=== PATIENT | male | born 1980 | race American Indian/Alaskan Native ===

== ENCOUNTER 2019-07-30 18:53 | Emergency (ER) | payer SELFPAY ==
[2019-07-30 20:53] VITALS: BP 151/95
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
--- NOTE | 2019-07-30 23:02 | XRay Report ---
LEFT ELBOW, 3 VIEWS INDICATION / CLINICAL INFORMATION: elbow pain. COMPARISON: None available. FINDINGS: Minimal degenerative changes are present. There is no visible fracture or dislocation. There is sligh t fullness in the region of the olecranon bursa. This could represent olecranon bursitis.. IMPRESSION: Mild degenerative change with findings that could represent olecranon bursitis. Please co rrelate clinically.. Signer Name: Jessica Tomas MD Signed: 07/30/2019 10:58 PM Workstation Name: [id number]
[2019-07-30] MEDS ORDERED: IBUPROFEN 600 MG TAB PO ONE (23:28)
[2019-07-30] MEDS ORDERED: ACETAMINOPHEN 500 MG TAB PO ONE (23:28)
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
== END 2019-07-31 00:45 | disposition home or self-care (01) ==
LOC: ED 18:53
DX: S53.402A Unspecified sprain of left elbow, initial encounter (principal); S50.12XA Contusion of left forearm, initial encounter; Z79.899 Other long term (current) drug therapy; V49.49XA Driver injured in collision with other motor vehicles in traffic accident, initial encounter; Y93.89 Activity, other specified; Y99.8 Other external cause status; Y92.410 Unspecified street and highway as the place of occurrence of the external cause
CPT/HCPCS: 99284

== ENCOUNTER 2020-01-03 10:47 | Emergency (ER) | payer BC ==
[2020-01-03 10:55] VITALS: BP 140/94
--- NOTE | 2020-01-03 11:12 | Emergency Department Report ---
Suture/Staple Removal - [facility] Chief Complaint: Laceration/Recheck/Suture Stated Complaint: REMOVE AMARA IN HEAD Time Seen by Provider: 01/03/20 11:11 When Sutures or [place] Placed: 12/15/2019 Wound Location: parietal scalp ED Review of Systems ROS: Stated complaint: REMOVE AMARA IN HEAD Other details as noted in HPI Comment: All other systems reviewed and negative ED Past Medical Hx - Past Medical History Previous Medical History?: No - Surgical History Past Surgical History?: No - Social History Smoking Status: Never Smoker Substance Use Type: None - Medications Home Medications: Home Medications Medication Instructions Recorded Confirmed Last Taken Type cephALEXin [Keflex] 500 mg PO Q8H #12 capsule 06/19/13 Unknown Rx Sulfamethoxazole/Trimethoprim 1 each PO BID #14 tablet 07/09/13 Unknown Rx [Bactrim Ds] Cyclobenzaprine [Flexeril] 10 mg PO Q8H PRN #21 tablet 07/31/19 Unknown Rx Ibuprofen [Motrin] 800 mg PO Q8HR PRN #24 tablet 07/31/19 Unknown Rx Acetaminophen/Codeine [Tylenol 1 tab PO Q6H PRN #10 tab 12/15/19 Unknown Rx /Codeine # 3 tab] Ibuprofen [Motrin 800 MG tab] 800 mg PO Q8HR PRN #21 tablet 12/15/19 Unknown Rx Mupirocin [Bactroban 2% OINT] 1 applic TP TID 7 Days #1 tube 12/15/19 Unknown Rx cephALEXin [Keflex] 500 mg PO Q12HR 7 Days #14 cap 12/15/19 Unknown Rx Suture Removal Exam - Exam General: Vital signs noted. No distress. Alert and acting appropriately. Wound: No Pathologic Erythema, No Tenderness, No Drainage, No Pus, No Wound Dehiscence Other Systems: All other systems reviewed and are unremarkable. ED Course Vital Signs 01/03/20 10:52 Temperature 97.6 F Pulse Rate 66 Respiratory 16 Rate Blood Pressure 140/94 O2 Sat by Pulse 99 Oximetry ED Recheck MDM - Medical Decision Making Patient is a 39-year-old male presents emergency room with complaints of a staple removal from the parietal scalp region. He was seen in the emergency department on 12/15/2019 and had amara placed at that time. I asked patient why he left the amara in so long and he states that he could not get a day off work and that is why he presented today. He denies any fever, drainage, increased pain, swelling, headache, vision changes, numbness, weakness, any symptoms at all. He states that he did complete his medications that he was prescribed during his emergency room visit. Wound appears healed, clean, dry, intact, no signs of infection. All amara removed without difficulty, no signs of wound dehiscence, no complications, no bleeding, patient tolerated well. Critical care attestation.: If time is entered above; I have spent that time in minutes in the direct care of this critically ill patient, excluding procedure time. ED Disposition Clinical Impression: Encounter for staple removal Disposition: DC- TO HOME OR SELFCARE Is pt being admited?: No Does the pt Need Aspirin: No Condition: Stable Additional Instructions: Follow-up with a primary care doctor. Return to emergency room for new or worsening symptoms. Referrals: SHARMILA PRESCOTT MD [Staff Physician] - 3-5 Days [facility] [Provider Group] - 3-5 Days [facility] [Outside] - 3-5 Days Time of Disposition: 11:12 Print Language: SAMOAN
== END 2020-01-03 11:25 | disposition home or self-care (01) ==
LOC: ED 10:47
DX: T14.8XXD Other injury of unspecified body region, subsequent encounter (principal); Z48.02 Encounter for removal of sutures; Z53.21 Procedure and treatment not carried out due to patient leaving prior to being seen by health care provider

== ENCOUNTER 2020-03-25 21:39 | Emergency (ER) | payer SELFPAY ==
[2020-03-25 22:43] VITALS: BP 135/88
[2020-03-25] MEDS ORDERED: HYDROcodone/ACETAMINOPHEN 5-325 MG TAB PO ONE (23:15)
--- NOTE | 2020-03-25 23:46 | Emergency Department Report ---
ED ENT HPI - General Chief complaint: Dental/Oral Stated complaint: TOOTHACHE Time Seen by Provider: 03/25/20 23:16 Source: patient Mode of arrival: Ambulatory Limitations: No Limitations - History of Present Illness Initial comments: Patient is a 39-year-old male who presents with dental pain with facial swelling x2 days. Patient denies ear or throat pain there is no stridor no wheezing. Patient does endorse history of chronic dental caries. Pain today is described as 6/10 aching pain is relieved by nothing, pain is exacerbated by hot cold stimuli and palpation. There are no fevers, or chills. Patient is tolerating p.o. on the opposite side. MD complaint: tooth pain - Related Data Previous Rx's Medication Instructions Recorded Last Taken Type cephALEXin [Keflex] 500 mg PO Q8H #12 capsule 06/19/13 Unknown Rx Sulfamethoxazole/Trimethoprim 1 each PO BID #14 tablet 07/09/13 Unknown Rx [Bactrim Ds] Cyclobenzaprine [Flexeril] 10 mg PO Q8H PRN #21 tablet 07/31/19 Unknown Rx Ibuprofen [Motrin] 800 mg PO Q8HR PRN #24 tablet 07/31/19 Unknown Rx Acetaminophen/Codeine [Tylenol 1 tab PO Q6H PRN #10 tab 12/15/19 Unknown Rx /Codeine # 3 tab] Ibuprofen [Motrin 800 MG tab] 800 mg PO Q8HR PRN #21 tablet 12/15/19 Unknown Rx Mupirocin [Bactroban 2% OINT] 1 applic TP TID 7 Days #1 tube 12/15/19 Unknown Rx cephALEXin [Keflex] 500 mg PO Q12HR 7 Days #14 cap 12/15/19 Unknown Rx Amoxicillin [Trimox CAP] 500 mg PO Q8H #21 capsule 03/25/20 Unknown Rx Chlorhexidine Mouthwash [Peridex] 15 ml MM BID #1 bottle 03/25/20 Unknown Rx traMADoL [Ultram] 50 mg PO Q6HR PRN #12 tablet 03/25/20 Unknown Rx Allergies Allergy/AdvReac Type Severity Reaction Status Date / Time No Known Allergies Allergy Verified 07/09/13 10:41 ED Dental HPI - General Chief complaint: Dental/Oral Stated complaint: TOOTHACHE Time Seen by Provider: 03/25/20 23:16 Source: patient Mode of arrival: Ambulatory Limitations: No Limitations - Related Data Previous Rx's Medication Instructions Recorded Last Taken Type cephALEXin [Keflex] 500 mg PO Q8H #12 capsule 06/19/13 Unknown Rx Sulfamethoxazole/Trimethoprim 1 each PO BID #14 tablet 07/09/13 Unknown Rx [Bactrim Ds] Cyclobenzaprine [Flexeril] 10 mg PO Q8H PRN #21 tablet 07/31/19 Unknown Rx Ibuprofen [Motrin] 800 mg PO Q8HR PRN #24 tablet 07/31/19 Unknown Rx Acetaminophen/Codeine [Tylenol 1 tab PO Q6H PRN #10 tab 12/15/19 Unknown Rx /Codeine # 3 tab] Ibuprofen [Motrin 800 MG tab] 800 mg PO Q8HR PRN #21 tablet 12/15/19 Unknown Rx Mupirocin [Bactroban 2% OINT] 1 applic TP TID 7 Days #1 tube 12/15/19 Unknown Rx cephALEXin [Keflex] 500 mg PO Q12HR 7 Days #14 cap 12/15/19 Unknown Rx Amoxicillin [Trimox CAP] 500 mg PO Q8H #21 capsule 03/25/20 Unknown Rx Chlorhexidine Mouthwash [Peridex] 15 ml MM BID #1 bottle 03/25/20 Unknown Rx traMADoL [Ultram] 50 mg PO Q6HR PRN #12 tablet 03/25/20 Unknown Rx Allergies Allergy/AdvReac Type Severity Reaction Status Date / Time No Known Allergies Allergy Verified 07/09/13 10:41 ED Review of Systems ROS: Stated complaint: TOOTHACHE Other details as noted in HPI Constitutional: denies: chills, fever Eyes: denies: eye pain, eye discharge, vision change ENT: dental pain Respiratory: denies: cough, shortness of breath, wheezing Cardiovascular: denies: chest pain, palpitations Endocrine: no symptoms reported Gastrointestinal: denies: abdominal pain, nausea, diarrhea Genitourinary: denies: urgency, dysuria Musculoskeletal: denies: back pain, joint swelling, arthralgia Skin: denies: rash, lesions Neurological: denies: headache, weakness, paresthesias Psychiatric: denies: anxiety, depression Hematological/Lymphatic: denies: easy bleeding, easy bruising ED Past Medical Hx - Past Medical History Previous Medical History?: No - Surgical History Past Surgical History?: No - Social History Smoking Status: Never Smoker Substance Use Type: None - Medications Home Medications: Home Medications Medication Instructions Recorded Confirmed Last Taken Type cephALEXin [Keflex] 500 mg PO Q8H #12 capsule 06/19/13 Unknown Rx Sulfamethoxazole/Trimethoprim 1 each PO BID #14 tablet 07/09/13 Unknown Rx [Bactrim Ds] Cyclobenzaprine [Flexeril] 10 mg PO Q8H PRN #21 tablet 07/31/19 Unknown Rx Ibuprofen [Motrin] 800 mg PO Q8HR PRN #24 tablet 07/31/19 Unknown Rx Acetaminophen/Codeine [Tylenol 1 tab PO Q6H PRN #10 tab 12/15/19 Unknown Rx /Codeine # 3 tab] Ibuprofen [Motrin 800 MG tab] 800 mg PO Q8HR PRN #21 tablet 12/15/19 Unknown Rx Mupirocin [Bactroban 2% OINT] 1 applic TP TID 7 Days #1 tube 12/15/19 Unknown Rx cephALEXin [Keflex] 500 mg PO Q12HR 7 Days #14 cap 12/15/19 Unknown Rx Amoxicillin [Trimox CAP] 500 mg PO Q8H #21 capsule 03/25/20 Unknown Rx Chlorhexidine Mouthwash [Peridex] 15 ml MM BID #1 bottle 03/25/20 Unknown Rx traMADoL [Ultram] 50 mg PO Q6HR PRN #12 tablet 03/25/20 Unknown Rx ED Physical Exam - General Limitations: No Limitations General appearance: alert, in no apparent distress - Head Head exam: Present: atraumatic, normocephalic - Eye Eye exam: Present: normal appearance, EOMI Pupils: Present: normal accommodation - ENT ENT exam: Present: mucous membranes moist, TM's normal bilaterally, normal external ear exam - Expanded ENT Exam Expanded Mouth exam: Absent: trismus Teeth exam: Present: dental caries, dental tenderness # (29 mild erythem gum swelling , mild facial swelling, no trismus no fever) Throat exam: Positive: normal inspection. Negative: tonsillar erythema, tonsillomegaly, tonsillar exudate, R peritonsillar mass, L peritonsillar mass - Neck Neck exam: Present: normal inspection, full ROM, lymphadenopathy. Absent: tenderness, meningismus, thyromegaly - Respiratory Respiratory exam: Present: normal lung sounds bilaterally. Absent: respiratory distress, wheezes, stridor, chest wall tenderness - Cardiovascular Cardiovascular Exam: Present: regular rate, normal rhythm, normal heart sounds. Absent: systolic murmur, diastolic murmur, rubs, gallop - GI/Abdominal GI/Abdominal exam: Present: soft, normal bowel sounds. Absent: distended, tenderness - Rectal Rectal exam: Present: deferred - Extremities Exam Extremities exam: Present: normal inspection - Back Exam Back exam: Present: normal inspection, full ROM. Absent: tenderness - Neurological Exam Neurological exam: Present: alert, oriented X3 - Psychiatric Psychiatric exam: Present: normal affect, normal mood - Skin Skin exam: Present: warm, dry, intact, normal color. Absent: rash ED Course Vital Signs 03/25/20 22:01 Temperature 99.4 F Pulse Rate 101 H Respiratory 18 Rate Blood Pressure 135/88 O2 Sat by Pulse 97 Oximetry ED Medical Decision Making - Medical Decision Making this is infected dental carries, pt declines CT soft tissue neck, pt is tolerating po intake with out difficulty. plan: dc to home with rx , follow up with pcp in 2-3 days , pt verbalized agreement and understanding of discharge plan. Critical care attestation.: If time is entered above; I have spent that time in minutes in the direct care of this critically ill patient, excluding procedure time. ED Disposition Clinical Impression: Infected dental carries Disposition: DC-01 TO HOME OR SELFCARE Is pt being admited?: No Does the pt Need Aspirin: No Condition: Stable Instructions: Dental Caries (ED) Prescriptions: Chlorhexidine Mouthwash [Peridex] 15 ml MM BID #1 bottle Amoxicillin [Trimox CAP] 500 mg PO Q8H #21 capsule traMADoL [Ultram] 50 mg PO Q6HR PRN #12 tablet PRN Reason: Pain Referrals: [facility] [Provider Group] - 3-5 Days Forms: Work/School Release Form(ED) Time of Disposition: 23:59
== END 2020-03-26 00:19 | disposition home or self-care (01) ==
LOC: ED 21:39
DX: K02.9 Dental caries, unspecified (principal); Z79.899 Other long term (current) drug therapy
CPT/HCPCS: 99282

== ENCOUNTER 2020-04-16 18:08 | Emergency (ER) | payer SELFPAY ==
[2020-04-16 18:27] VITALS: BP 155/98
--- NOTE | 2020-04-16 18:32 | Emergency Department Report ---
ED Rash HPI - HPI Chief Complaint: Skin Rash Stated Complaint: FACE PAIN,LT FOOT PAIN Time Seen by Provider: 04/16/20 18:31 Duration: 2 Days Rash Symptoms: Yes Itching, Yes Facial Swelling, Yes Peeling, Yes Blistering, No Fever Severity: moderate Other History: The patient was evaluated in the emergency department for symptoms described in the history of present illness. He/she was evaluated in the context of the global COVID-19 pandemic, which necessitated consideration that the patient might be at risk for infection with the virus that causes COVID-19. Institutional protocols and algorithms that pertain to the evaluation of patients at risk for COVID-19 are in a state of rapid change based on information released by regulatory bodies including the CDC and federal and state organizations. These policies and algorithms were followed during the patient's care in the emergency department. Please note that these policies, procedures and recommendations changed on a rapid basis. 39-year-old - [place] male presents to the emergency room complaining of a eruptions on his face and between his toes of his left foot. Patient does admit that he keeps his feet and moist shoes. Patient complains of cracking peeling skin between his toes as well as having swelling and pus drainage from his skin on his face. Patient denies any fever chills no nausea no vomiting. ED Review of Systems ROS: Stated complaint: FACE PAIN,LT FOOT PAIN Other details as noted in HPI ED Past Medical Hx - Past Medical History Previous Medical History?: No - Surgical History Past Surgical History?: No - Social History Smoking Status: Never Smoker - Medications Home Medications: Home Medications Medication Instructions Recorded Confirmed Last Taken Type cephALEXin [Keflex] 500 mg PO Q8H #12 capsule 06/19/13 Unknown Rx Sulfamethoxazole/Trimethoprim 1 each PO BID #14 tablet 07/09/13 Unknown Rx [Bactrim Ds] Cyclobenzaprine [Flexeril] 10 mg PO Q8H PRN #21 tablet 07/31/19 Unknown Rx Ibuprofen [Motrin] 800 mg PO Q8HR PRN #24 tablet 07/31/19 Unknown Rx Acetaminophen/Codeine [Tylenol 1 tab PO Q6H PRN #10 tab 12/15/19 Unknown Rx /Codeine # 3 tab] Ibuprofen [Motrin 800 MG tab] 800 mg PO Q8HR PRN #21 tablet 12/15/19 Unknown Rx cephALEXin [Keflex] 500 mg PO Q12HR 7 Days #14 cap 12/15/19 Unknown Rx Amoxicillin [Trimox CAP] 500 mg PO Q8H #21 capsule 03/25/20 Unknown Rx Chlorhexidine Mouthwash [Peridex] 15 ml MM BID #1 bottle 03/25/20 Unknown Rx traMADoL [Ultram] 50 mg PO Q6HR PRN #12 tablet 03/25/20 Unknown Rx Clindamycin [Clindamycin CAP] 300 mg PO Q8H 10 Days #30 cap 04/16/20 Unknown Rx Clotrimazole/Betamethasone Dip 1 applicatio TP BID #45 cream..g. 04/16/20 Unknown Rx [Lotrisone Cream] Mupirocin [Bactroban 2% OINT] 1 applic TP TID 7 Days #1 tube 04/16/20 Unknown Rx Rash Exam - Exam General: Vital signs noted. No distress. Alert and acting appropriately. ED Course Vital Signs 04/16/20 18:20 Temperature 98.5 F Pulse Rate 95 H Respiratory 19 Rate Blood Pressure 155/98 O2 Sat by Pulse 95 Oximetry ED Medical Decision Making - Medical Decision Making 39-year-old -[place] male presents to the emergency room complaining of a eruptions on his face and between his toes of his left foot. Patient does admit that he keeps his feet and moist shoes. Patient complains of cracking peeling skin between his toes as well as having swelling and pus drainage from his skin on his face. Patient denies any fever chills no nausea no vomiting. Critical care attestation.: If time is entered above; I have spent that time in minutes in the direct care of this critically ill patient, excluding procedure time. ED Disposition Clinical Impression: Diffuse cellulitis of face, Tinea pedis of both feet Disposition: DC-01 TO HOME OR SELFCARE Is pt being admited?: No Does the pt Need Aspirin: No Condition: Stable Instructions: Athlete's Foot, [id number], Cellulitis, Adult, [id number] Additional Instructions: Complete antibiotics as prescribed. Use cream to your feet and face as prescribed. Follow-up with your primary care provider. Prescriptions: Mupirocin [Bactroban 2% OINT] 1 applic TP TID 7 Days #1 tube Clindamycin [Clindamycin CAP] 300 mg PO Q8H 10 Days #30 cap Clotrimazole/Betamethasone Dip [Lotrisone Cream] 1 applicatio TP BID #45 cream..g. Referrals: [facility] [Provider Group] - 3-5 Days Forms: Work/School Release Form(ED)
== END 2020-04-16 18:42 | disposition home or self-care (01) ==
LOC: ED 18:08
DX: L03.211 Cellulitis of face (principal); B35.3 Tinea pedis; Z79.899 Other long term (current) drug therapy
CPT/HCPCS: 99281

== ENCOUNTER 2020-05-27 22:01 | Emergency (ER) | payer SELFPAY ==
[2020-05-27 22:09] VITALS: BP 139/91
--- NOTE | 2020-05-27 22:11 | Emergency Department Report ---
ED ENT HPI - General Stated complaint: JAW SWOLLEN Time Seen by Provider: 05/27/20 22:06 Source: patient - History of Present Illness Initial comments: 39-year-old male presents emerged department complaining of painful swelling to the right lower jaw region for an unknown etiology which is been going on for the last couple weeks. Pain is worse with palpation, eating, chewing. Ports no fever, chills, sweats no chest pain palpitation no nausea vomiting. -: Gradual, days(s) Location: tooth # Severity: moderate Quality: dull Consistency: constant Worsens with: eating, movement Context- Dental: history of dental caries Associated Symptoms: gum swelling. denies: pain with swallowing, sore throat, discharge from ear, rhinorrhea - Related Data Previous Rx's Medication Instructions Recorded Last Taken Type cephALEXin [Keflex] 500 mg PO Q8H #12 capsule 06/19/13 Unknown Rx Sulfamethoxazole/Trimethoprim 1 each PO BID #14 tablet 07/09/13 Unknown Rx [Bactrim Ds] Cyclobenzaprine [Flexeril] 10 mg PO Q8H PRN #21 tablet 07/31/19 Unknown Rx Ibuprofen [Motrin] 800 mg PO Q8HR PRN #24 tablet 07/31/19 Unknown Rx Acetaminophen/Codeine [Tylenol 1 tab PO Q6H PRN #10 tab 12/15/19 Unknown Rx /Codeine # 3 tab] Ibuprofen [Motrin 800 MG tab] 800 mg PO Q8HR PRN #21 tablet 12/15/19 Unknown Rx cephALEXin [Keflex] 500 mg PO Q12HR 7 Days #14 cap 12/15/19 Unknown Rx Amoxicillin [Trimox CAP] 500 mg PO Q8H #21 capsule 03/25/20 Unknown Rx Chlorhexidine Mouthwash [Peridex] 15 ml MM BID #1 bottle 03/25/20 Unknown Rx traMADoL [Ultram] 50 mg PO Q6HR PRN #12 tablet 03/25/20 Unknown Rx Clindamycin [Clindamycin CAP] 300 mg PO Q8H 10 Days #30 cap 04/16/20 Unknown Rx Clotrimazole/Betamethasone Dip 1 applicatio TP BID #45 cream..g. 04/16/20 Unknown Rx [Lotrisone Cream] Mupirocin [Bactroban 2% OINT] 1 applic TP TID 7 Days #1 tube 04/16/20 Unknown Rx Amoxicillin [Amoxicillin TAB] 875 mg PO BID #20 tablet 05/27/20 Unknown Rx Chlorhexidine Mouthwash [Peridex] 15 ml MM BID #1 bottle 05/27/20 Unknown Rx Ketorolac [Toradol] 10 mg PO Q6H PRN #15 tablet 05/27/20 Unknown Rx Lidocaine Viscous 2% 5 ml MM Q3H PRN #120 udc 05/27/20 Unknown Rx Allergies Allergy/AdvReac Type Severity Reaction Status Date / Time No Known Allergies Allergy Verified 07/09/13 10:41 ED Dental HPI - General Stated complaint: JAW SWOLLEN Time Seen by Provider: 05/27/20 22:06 - Related Data Previous Rx's Medication Instructions Recorded Last Taken Type cephALEXin [Keflex] 500 mg PO Q8H #12 capsule 06/19/13 Unknown Rx Sulfamethoxazole/Trimethoprim 1 each PO BID #14 tablet 07/09/13 Unknown Rx [Bactrim Ds] Cyclobenzaprine [Flexeril] 10 mg PO Q8H PRN #21 tablet 07/31/19 Unknown Rx Ibuprofen [Motrin] 800 mg PO Q8HR PRN #24 tablet 07/31/19 Unknown Rx Acetaminophen/Codeine [Tylenol 1 tab PO Q6H PRN #10 tab 12/15/19 Unknown Rx /Codeine # 3 tab] Ibuprofen [Motrin 800 MG tab] 800 mg PO Q8HR PRN #21 tablet 12/15/19 Unknown Rx cephALEXin [Keflex] 500 mg PO Q12HR 7 Days #14 cap 12/15/19 Unknown Rx Amoxicillin [Trimox CAP] 500 mg PO Q8H #21 capsule 03/25/20 Unknown Rx Chlorhexidine Mouthwash [Peridex] 15 ml MM BID #1 bottle 03/25/20 Unknown Rx traMADoL [Ultram] 50 mg PO Q6HR PRN #12 tablet 03/25/20 Unknown Rx Clindamycin [Clindamycin CAP] 300 mg PO Q8H 10 Days #30 cap 04/16/20 Unknown Rx Clotrimazole/Betamethasone Dip 1 applicatio TP BID #45 cream..g. 04/16/20 Unknown Rx [Lotrisone Cream] Mupirocin [Bactroban 2% OINT] 1 applic TP TID 7 Days #1 tube 04/16/20 Unknown Rx Amoxicillin [Amoxicillin TAB] 875 mg PO BID #20 tablet 05/27/20 Unknown Rx Chlorhexidine Mouthwash [Peridex] 15 ml MM BID #1 bottle 05/27/20 Unknown Rx Ketorolac [Toradol] 10 mg PO Q6H PRN #15 tablet 05/27/20 Unknown Rx Lidocaine Viscous 2% 5 ml MM Q3H PRN #120 udc 05/27/20 Unknown Rx Allergies Allergy/AdvReac Type Severity Reaction Status Date / Time No Known Allergies Allergy Verified 07/09/13 10:41 ED Review of Systems ROS: Stated complaint: JAW SWOLLEN Other details as noted in HPI Comment: All other systems reviewed and negative ED Past Medical Hx - Social History Smoking Status: Never Smoker - Medications Home Medications: Home Medications Medication Instructions Recorded Confirmed Last Taken Type cephALEXin [Keflex] 500 mg PO Q8H #12 capsule 06/19/13 Unknown Rx Sulfamethoxazole/Trimethoprim 1 each PO BID #14 tablet 07/09/13 Unknown Rx [Bactrim Ds] Cyclobenzaprine [Flexeril] 10 mg PO Q8H PRN #21 tablet 07/31/19 Unknown Rx Ibuprofen [Motrin] 800 mg PO Q8HR PRN #24 tablet 07/31/19 Unknown Rx Acetaminophen/Codeine [Tylenol 1 tab PO Q6H PRN #10 tab 12/15/19 Unknown Rx /Codeine # 3 tab] Ibuprofen [Motrin 800 MG tab] 800 mg PO Q8HR PRN #21 tablet 12/15/19 Unknown Rx cephALEXin [Keflex] 500 mg PO Q12HR 7 Days #14 cap 12/15/19 Unknown Rx Amoxicillin [Trimox CAP] 500 mg PO Q8H #21 capsule 03/25/20 Unknown Rx Chlorhexidine Mouthwash [Peridex] 15 ml MM BID #1 bottle 03/25/20 Unknown Rx traMADoL [Ultram] 50 mg PO Q6HR PRN #12 tablet 03/25/20 Unknown Rx Clindamycin [Clindamycin CAP] 300 mg PO Q8H 10 Days #30 cap 04/16/20 Unknown Rx Clotrimazole/Betamethasone Dip 1 applicatio TP BID #45 cream..g. 04/16/20 Unknown Rx [Lotrisone Cream] Mupirocin [Bactroban 2% OINT] 1 applic TP TID 7 Days #1 tube 04/16/20 Unknown Rx Amoxicillin [Amoxicillin TAB] 875 mg PO BID #20 tablet 05/27/20 Unknown Rx Chlorhexidine Mouthwash [Peridex] 15 ml MM BID #1 bottle 05/27/20 Unknown Rx Ketorolac [Toradol] 10 mg PO Q6H PRN #15 tablet 05/27/20 Unknown Rx Lidocaine Viscous 2% 5 ml MM Q3H PRN #120 udc 05/27/20 Unknown Rx ED Physical Exam - General General appearance: alert, in no apparent distress - Head Head exam: Present: atraumatic, normocephalic - Eye Eye exam: Present: normal appearance, PERRL Pupils: Present: normal accommodation - ENT ENT exam: Present: normal exam, mucous membranes moist, other - Expanded ENT Exam Expanded Mouth exam: Present: other. Absent: normal external inspection, drooling, trismus, muffled voice, tongue normal, tongue elevation Teeth exam: Present: dental caries, gingival enlargement 1 - Other (Gingival swelling to this region. Abscess formation) Throat exam: Negative: tonsillar erythema, tonsillar exudate, R peritonsillar mass (Swelling adjacent to the right mandible), L peritonsillar mass - Neck Neck exam: Present: normal inspection, full ROM - Respiratory Respiratory exam: Present: normal lung sounds bilaterally. Absent: respiratory distress, rales, rhonchi, chest wall tenderness, accessory muscle use, decreased breath sounds - Cardiovascular Cardiovascular Exam: Present: regular rate, normal rhythm. Absent: systolic murmur, diastolic murmur, rubs, gallop - GI/Abdominal GI/Abdominal exam: Present: soft, normal bowel sounds - Rectal Rectal exam: Present: deferred - Extremities Exam Extremities exam: Present: normal inspection, normal capillary refill - Back Exam Back exam: Present: normal inspection. Absent: CVA tenderness (R), CVA tenderness (L) - Neurological Exam Neurological exam: Present: alert, oriented X3, CN II-XII intact - Psychiatric Psychiatric exam: Present: normal affect, normal mood - Skin Skin exam: Present: warm, dry, intact, normal color. Absent: rash Critical care attestation.: If time is entered above; I have spent that time in minutes in the direct care of this critically ill patient, excluding procedure time. ED Disposition Clinical Impression: Abscess, dental Disposition: DC-01 TO HOME OR SELFCARE Is pt being admited?: No Does the pt Need Aspirin: No Condition: Stable Instructions: Dental Abscess Referrals: [facility] [Outside] - 3-5 Days
== END 2020-05-27 22:41 | disposition home or self-care (01) ==
LOC: ED 22:01
DX: K04.7 Periapical abscess without sinus (principal); Z79.899 Other long term (current) drug therapy
CPT/HCPCS: 99282

== ENCOUNTER 2020-07-21 05:31 | Emergency (ER) | payer SELFPAY ==
--- NOTE | 2020-07-21 06:00 | Emergency Department Report ---
ED General Adult HPI - General Chief complaint: Dental/Oral Stated complaint: SWOLLEN JAW Source: patient Mode of arrival: Ambulatory Limitations: No Limitations - History of Present Illness Initial comments: Patient is a 39-year-old -[place] male with no past medical history presents to the ED with complaint of acute onset persistent severe right mandibular premolar molar toothache with swollen gums for the last 2 weeks, worse in the last 3 days. Patient states that he has not been able to eat or sleep because of worsening pain. Patient states that he has been taking [id number] medications with no relief. Patient denies dizziness, syncope, fever, chills, cough, sore throat, chest pain or shortness of breath, nausea and vomiting, headache, nasal and sinus congestion or traumatic injury. MD Complaint: Right mandibular premolar molar toothache with swollen gums -: Sudden, week(s) (2) Location: mouth Radiation: non-radiation Severity scale (0 -10): 8 Quality: aching, sharp Consistency: constant Improves with: none Worsens with: eating Associated Symptoms: denies other symptoms. denies: confusion, chest pain, cough, diaphoresis, fever/chills, headaches, loss of appetite, malaise, nausea/vomiting, rash, seizure, shortness of breath, syncope, weakness Treatments Prior to Arrival: none - Related Data Previous Rx's Medication Instructions Recorded Last Taken Type cephALEXin [Keflex] 500 mg PO Q8H #12 capsule 06/19/13 Unknown Rx Sulfamethoxazole/Trimethoprim 1 each PO BID #14 tablet 07/09/13 Unknown Rx [Bactrim Ds] Cyclobenzaprine [Flexeril] 10 mg PO Q8H PRN #21 tablet 07/31/19 Unknown Rx Ibuprofen [Motrin 800 MG tab] 800 mg PO Q8HR PRN #21 tablet 12/15/19 Unknown Rx cephALEXin [Keflex] 500 mg PO Q12HR 7 Days #14 cap 12/15/19 Unknown Rx Amoxicillin [Trimox CAP] 500 mg PO Q8H #21 capsule 03/25/20 Unknown Rx Chlorhexidine Mouthwash [Peridex] 15 ml MM BID #1 bottle 03/25/20 Unknown Rx traMADoL [Ultram] 50 mg PO Q6HR PRN #12 tablet 03/25/20 Unknown Rx Clotrimazole/Betamethasone Dip 1 applicatio TP BID #45 cream..g. 04/16/20 Unknown Rx [Lotrisone Cream] Mupirocin [Bactroban 2% OINT] 1 applic TP TID 7 Days #1 tube 04/16/20 Unknown Rx Amoxicillin [Amoxicillin TAB] 875 mg PO BID #20 tablet 05/27/20 Unknown Rx Chlorhexidine Mouthwash [Peridex] 15 ml MM BID #1 bottle 05/27/20 Unknown Rx Ketorolac [Toradol] 10 mg PO Q6H PRN #15 tablet 05/27/20 Unknown Rx Lidocaine Viscous 2% 5 ml MM Q3H PRN #120 udc 05/27/20 Unknown Rx Acetaminophen/Codeine [Tylenol 1 tab PO Q6H PRN #10 tab 07/21/20 Unknown Rx /Codeine # 3 tab] Clindamycin [Clindamycin CAP] 300 mg PO Q8H 10 Days #30 cap 07/21/20 Unknown Rx Ibuprofen [Motrin 800 MG tab] 800 mg PO Q8HR PRN #30 tablet 07/21/20 Unknown Rx Allergies Allergy/AdvReac Type Severity Reaction Status Date / Time No Known Allergies Allergy Verified 07/09/13 10:41 ED Review of Systems ROS: Stated complaint: SWOLLEN JAW Other details as noted in HPI Constitutional: denies: chills, fever Eyes: denies: eye pain, eye discharge, vision change ENT: dental pain (Swollen, painful right mandibular gingiva with premolar molar toothache). denies: ear pain, throat pain Respiratory: denies: cough, shortness of breath, wheezing Cardiovascular: denies: chest pain, palpitations Endocrine: no symptoms reported Gastrointestinal: denies: abdominal pain, nausea, diarrhea Genitourinary: denies: urgency, dysuria Musculoskeletal: denies: back pain, joint swelling, arthralgia Skin: denies: rash, lesions Neurological: denies: headache, weakness, paresthesias Psychiatric: denies: anxiety, depression Hematological/Lymphatic: denies: easy bleeding, easy bruising ED Past Medical Hx - Social History Smoking Status: Never Smoker - Medications Home Medications: Home Medications Medication Instructions Recorded Confirmed Last Taken Type cephALEXin [Keflex] 500 mg PO Q8H #12 capsule 06/19/13 Unknown Rx Sulfamethoxazole/Trimethoprim 1 each PO BID #14 tablet 07/09/13 Unknown Rx [Bactrim Ds] Cyclobenzaprine [Flexeril] 10 mg PO Q8H PRN #21 tablet 07/31/19 Unknown Rx Ibuprofen [Motrin 800 MG tab] 800 mg PO Q8HR PRN #21 tablet 12/15/19 Unknown Rx cephALEXin [Keflex] 500 mg PO Q12HR 7 Days #14 cap 12/15/19 Unknown Rx Amoxicillin [Trimox CAP] 500 mg PO Q8H #21 capsule 03/25/20 Unknown Rx Chlorhexidine Mouthwash [Peridex] 15 ml MM BID #1 bottle 03/25/20 Unknown Rx traMADoL [Ultram] 50 mg PO Q6HR PRN #12 tablet 03/25/20 Unknown Rx Clotrimazole/Betamethasone Dip 1 applicatio TP BID #45 cream..g. 04/16/20 Unknown Rx [Lotrisone Cream] Mupirocin [Bactroban 2% OINT] 1 applic TP TID 7 Days #1 tube 04/16/20 Unknown Rx Amoxicillin [Amoxicillin TAB] 875 mg PO BID #20 tablet 05/27/20 Unknown Rx Chlorhexidine Mouthwash [Peridex] 15 ml MM BID #1 bottle 05/27/20 Unknown Rx Ketorolac [Toradol] 10 mg PO Q6H PRN #15 tablet 05/27/20 Unknown Rx Lidocaine Viscous 2% 5 ml MM Q3H PRN #120 udc 05/27/20 Unknown Rx Acetaminophen/Codeine [Tylenol 1 tab PO Q6H PRN #10 tab 07/21/20 Unknown Rx /Codeine # 3 tab] Clindamycin [Clindamycin CAP] 300 mg PO Q8H 10 Days #30 cap 07/21/20 Unknown Rx Ibuprofen [Motrin 800 MG tab] 800 mg PO Q8HR PRN #30 tablet 07/21/20 Unknown Rx ED Physical Exam - General Limitations: No Limitations General appearance: alert, in no apparent distress - Head Head exam: Present: atraumatic, normocephalic, normal inspection - Eye Eye exam: Present: normal appearance, PERRL, EOMI Pupils: Present: normal accommodation - ENT ENT exam: Present: mucous membranes moist, TM's normal bilaterally, normal external ear exam, other (Swollen, sore tender right mandibular gingiva with severe premolar and molar teeth tenderness and multiple dental caries) - Neck Neck exam: Present: normal inspection, full ROM - Respiratory Respiratory exam: Present: normal lung sounds bilaterally. Absent: respiratory distress, wheezes, rales, rhonchi, chest wall tenderness, accessory muscle use, decreased breath sounds - Cardiovascular Cardiovascular Exam: Present: regular rate, normal rhythm, normal heart sounds. Absent: systolic murmur, diastolic murmur, rubs, gallop - GI/Abdominal GI/Abdominal exam: Present: soft, normal bowel sounds. Absent: tenderness, guarding, rebound, hyperactive bowel sounds, hypoactive bowel sounds, organomegaly - Extremities Exam Extremities exam: Present: normal inspection, full ROM, normal capillary refill - Back Exam Back exam: Present: normal inspection, full ROM. Absent: tenderness, CVA tenderness (R), CVA tenderness (L), muscle spasm - Neurological Exam Neurological exam: Present: alert, oriented X3, CN II-XII intact, normal gait, reflexes normal - Psychiatric Psychiatric exam: Present: normal affect, normal mood - Skin Skin exam: Present: warm, dry, intact, normal color. Absent: rash ED Medical Decision Making - Medical Decision Making This is a 39-year-old -[place] male with no past medical history presents to the ED with complaint of acute onset persistent severe right mandibular premolar molar toothache with swollen gums for the last 2 weeks, worse in the last 3 days. Patient states that he has not been able to eat or sleep because of worsening pain. Patient states that he has been taking [id number] medications with no relief. In the ED, patient is alert and oriented x3 and is not in distress. Patient was discharged home on antibiotics and pain medications based on the physical exam findings of acute gingivitis and suspected dental abscess. Patient was advised to follow-up with his primary care physician or dentist in 7 to 10 days for reevaluation or return to the ED immediately if symptoms get worse. - Differential Diagnosis Dental abscess; dental caries; gingivitis; lymphadenopathy Critical care attestation.: If time is entered above; I have spent that time in minutes in the direct care of this critically ill patient, excluding procedure time. ED Disposition Clinical Impression: Dental abscess, Acute gingivitis, Dental caries Disposition: TO HOME OR SELFCARE Is pt being admited?: No Does the pt Need Aspirin: No Condition: Stable Instructions: Dental Abscess, [id number], Trench Mouth Additional Instructions: Take medication with food, drink plenty of fluids and follow-up with your dentist or primary care physician in 7 to 10 days for reevaluation. Return to the ED immediately if symptoms get worse. Prescriptions: Clindamycin [Clindamycin CAP] 300 mg PO Q8H 10 Days #30 cap Ibuprofen [Motrin 800 MG tab] 800 mg PO Q8HR PRN #30 tablet PRN Reason: Pain , Severe (7-10) Acetaminophen/Codeine [Tylenol /Codeine # 3 tab] 1 tab PO Q6H PRN #10 tab PRN Reason: Pain , Severe (7-10) Referrals: [facility] [Outside] - 3-5 Days Time of Disposition: 06:00 Print Language: INDONESIAN
[2020-07-21 06:04] VITALS: BP 148/95
== END 2020-07-21 06:34 | disposition home or self-care (01) ==
LOC: ED 05:31
DX: K04.7 Periapical abscess without sinus (principal); K05.00 Acute gingivitis, plaque induced; K02.9 Dental caries, unspecified; Z79.899 Other long term (current) drug therapy
CPT/HCPCS: 99282